=== PATIENT | male | born 1980 | race Caucasian/White ===

== ENCOUNTER → 2019-11-13 | Outpatient (CLI) | payer MEDICAID ==
[2019-11-13 17:46] LABS: HEMOGLOBIN 13.3 g/dl (13.5-17.5); MEAN CORPUSCULAR HEMOGLOBIN 30.4 pg (27.0-33.0); MEAN CORPUSCULAR HGB CONC 34.1 g/dl (32.0-36.5); PLATELET COUNT, AUTOMATED 227 10^3/uL (150-450); RED BLOOD COUNT 4.38 10^6/uL (4.30-6.10); WHITE BLOOD COUNT 5.1 10^3/uL (4.0-10.0)
[2019-11-13 18:10] LABS: ALBUMIN 3.9 GM/DL (3.2-5.2); ALT/SGPT 811 U/L (12-78); BILIRUBIN,TOTAL 1.1 MG/DL (0.2-1.0); BLOOD UREA NITROGEN 15 MG/DL (7-18); CALCIUM LEVEL 9.6 MG/DL (8.5-10.1); CARBON DIOXIDE LEVEL 31 MEQ/L (21-32); CHLORIDE LEVEL 103 MEQ/L (98-107); GLOMERULAR FILTRATION RATE > 60.0 (>60); GLUCOSE, FASTING 83 MG/DL (70-100); POTASSIUM SERUM 4.2 MEQ/L (3.5-5.1); SODIUM LEVEL 137 MEQ/L (136-145); TOTAL PROTEIN 8.1 GM/DL (6.4-8.2)
[2019-11-13 19:55] LABS: CHLAMYDIA DNA AMPLIFICATION NEGATIVE (NEGATIVE); GC DNA AMPLIFICATION NEGATIVE (NEGATIVE)
[2019-11-14 10:16] LABS: HEPATITIS B SURFACE ANTIGEN NEGATIVE (NEGATIVE)
[2019-11-14 10:37] LABS: HEPATITIS C VIRUS ABY INDEX 0.2 INDEX (<0.8); HIV 1&2 SCREEN CENTAUR NEGATIVE (NEGATIVE)
--- NOTE | 2019-12-18 14:59 | ECGEPIP ---
[facility] Test Date: 2019-11-13 Pat Name: MILI BECERRA Department: Room: - Gender: Male [employer]isting [employer] Operator: RICKEY : 1980 Requested By: Andrew Reese Order Number: [id number] Reading MD: Davin Nuno Measurements Intervals Starlight Rate: 63 P: 30 KS: 145 QRS: 9 QRSD: 112 T: 30 QT: 405 QTc: 415 Interpretive Statements SINUS RHYTHM WITH RSR IN V1/V2 MODERATE INTRAVENTRICULAR CONDUCTION DELAY NO PRIOR TRACING SEE SCANNED DOWNTIME REPORT
== END ==
LOC: M LAB 14:23
PROVIDERS: ATTEND Family Medicine
DX: F11.20 Opioid dependence, uncomplicated (principal)

== ENCOUNTER → 2020-09-30 | Outpatient (CLI) | payer OTHER | LOC: M RAD 16:41 | PROVIDERS: ATTEND Surgery | DX: L05.91 Pilonidal cyst without abscess (principal); M54.5 Low back pain ==

== ENCOUNTER → 2020-10-05 | Outpatient (CLI) | payer OTHER | LOC: M RAD 17:04 | PROVIDERS: ATTEND Pediatrics | DX: N20.0 Calculus of kidney (principal) ==

== ENCOUNTER → 2021-03-10 | Outpatient (CLI) | payer OTHER ==
--- NOTE | 2021-03-10 08:40 | REP ---
INDICATION: LBP, HX OF PENILE CYST COMPARISON: None. TECHNIQUE: Limited directed grayscale and color ultrasound examination using high-frequency transducer. FINDINGS: Directed ultrasound examination overlying the sacrum at the point of maximal tenderness/pain demonstrates no obvious underlying pathology by ultrasound examination. No fluid collection. No fistulous tract. No mass lesion. IMPRESSION: Unremarkable examination. <Electronically signed by Jason Masterson > 03/10/21 0821
== END ==
LOC: M RAD 07:22
PROVIDERS: ATTEND Pediatrics
DX: M54.50 Low back pain, unspecified (principal)

== ENCOUNTER 2021-05-19 17:05 | Emergency (ER) | payer OTHER ==
[~2021-05-19] VITALS: Ht 182.9 cm; Wt 79.0 kg
[2021-05-19] MEDS ORDERED: SUBL100I SC (17:12)
[2021-05-19] MEDS ORDERED: NS 1,000 ML IV ONE ×2 (17:15→19:10)
[2021-05-19] MEDS ORDERED: LORazepam 2 MG/ML VIAL IV STA (17:24)
[2021-05-19 17:47] LABS: BASO % 0.4 % (0.0-1.0); EOS % 0.1 % (0.0-3.0); HEMATOCRIT 38.9 % (42.0-52.0); HEMOGLOBIN 13.9 g/dl (13.5-17.5); LYMPH % 18.3 % (24.0-44.0); MEAN CORPUSCULAR HEMOGLOBIN 29.1 pg (27.0-33.0); MEAN CORPUSCULAR HGB CONC 35.7 g/dl (32.0-36.5); MEAN CORPUSCULAR VOLUME 81.4 fl (80.0-96.0); NEUTROPHILS # 7.3 10^3/uL (1.5-8.5); PLATELET COUNT, AUTOMATED 328 10^3/uL (150-450); RED BLOOD COUNT 4.78 10^6/uL (4.30-6.10)
[2021-05-19 18:18] LABS: ACETAMINOPHEN LEVEL < 2.0 UG/ML (10.0-30.0); ALBUMIN 4.5 GM/DL (3.2-5.2); ALT/SGPT 35 U/L (12-78); BILIRUBIN,DIRECT 0.6 MG/DL (0.0-0.2); BILIRUBIN,TOTAL 3.1 MG/DL (0.2-1.0); BLOOD UREA NITROGEN 26 MG/DL (7-18); CALCIUM LEVEL 9.8 MG/DL (8.5-10.1); CARBON DIOXIDE LEVEL 22 MEQ/L (21-32); CHLORIDE LEVEL 101 MEQ/L (98-107); CREATININE FOR GFR 0.93 MG/DL (0.70-1.30); ETHYL ALCOHOL (ETHANOL) < 0.003 % (0.000-0.010); GLOMERULAR FILTRATION RATE > 60.0 (>60); GLUCOSE, FASTING 71 MG/DL (70-100); POTASSIUM SERUM 3.8 MEQ/L (3.5-5.1); SALICYLATE LEVEL < 1.7 MG/DL (5.0-30.0); SODIUM LEVEL 135 MEQ/L (136-145); TOTAL PROTEIN 8.1 GM/DL (6.4-8.2)
[2021-05-19 18:32] LABS: MONO # 1.6 10^3/uL (0.0-0.8); MONO % 14.8 % (2.0-8.0)
[2021-05-19 21:30] VITALS: BP 139/80
[2021-05-19 21:31] LABS: AMPHETAMINES LEVEL URINE NEGATIVE (NEGATIVE); BARBITURATES URINE NEGATIVE (NEGATIVE); BENZODIAZEPINES URINE NEGATIVE (NEGATIVE); CANNABINOIDS URINE NEGATIVE (NEGATIVE); COCAINE METABOLITE URINE NEGATIVE (NEGATIVE); METHADONE URINE NEGATIVE (NEGATIVE); OPIATES URINE NEGATIVE (NEGATIVE); PHENCYCLIDINE URINE NEGATIVE (NEGATIVE)
== END 2021-05-19 22:40 | disposition left against medical advice (07) ==
LOC: M ED 17:05
DX: F19.10 Other psychoactive substance abuse, uncomplicated (principal); M62.82 Rhabdomyolysis; R94.31 Abnormal electrocardiogram [ECG] [EKG]; F11.10 Opioid abuse, uncomplicated; Z88.0 Allergy status to penicillin; Z88.6 Allergy status to analgesic agent; Z53.21 Procedure and treatment not carried out due to patient leaving prior to being seen by health care provider
CPT/HCPCS: 80048; 80076; 80143; 80307; 82077; 82550; 84443; 85025; 93005; 93041; 96361; 96374; 99285; J2060

== ENCOUNTER 2022-02-09 14:00 | Inpatient (IN) | payer OTHER ==
[~2022-02-09] VITALS: Ht 185.4 cm; Wt 85.0 kg
[~2022-02-09 14:00] MED LIST: SUBL100I SC
[2022-02-09] MEDS ORDERED: levETIRAcetam INJection 1,000 MG in D5W 100 ML IV ONE (14:10)
[2022-02-09] MEDS ORDERED: LORazepam 2 MG/ML VIAL IV STA (14:10)
[2022-02-09 14:38] LABS: ABG BASE EXCESS 0.6 (-2.0-2.0); ABG HCO3 25.2 MEQ/L (22.0-26.0); ABG O2 SATURATION 97.7 % (95.0-99.0); ABG PARTIAL PRESSURE CO2 40.4 mmHg (35.0-45.0); ABG PARTIAL PRESSURE O2 101.4 mmHg (75.0-100.0); ABG TOTAL CO2 26.4 MEQ/L (22.0-29.0); ABG pH (ARTERIAL) 7.413 UNITS (7.350-7.450)
[2022-02-09 15:03] LABS: BASO % 0.4 % (0.0-1.0); EOS # 0.1 10^3/uL (0.0-0.5); EOS % 1.4 % (0.0-3.0); HEMATOCRIT 40.4 % (42.0-52.0); HEMOGLOBIN 13.6 g/dl (13.5-17.5); LYMPH # 1.9 10^3/uL (1.5-5.0); LYMPH % 26.4 % (24.0-44.0); MEAN CORPUSCULAR HEMOGLOBIN 29.4 pg (27.0-33.0); MEAN CORPUSCULAR HGB CONC 33.7 g/dl (32.0-36.5); MEAN CORPUSCULAR VOLUME 87.4 fl (80.0-96.0); MONO # 0.7 10^3/uL (0.0-0.8); MONO % 9.4 % (2.0-8.0); NEUTROPHILS # 4.4 10^3/uL (1.5-8.5); PLATELET COUNT, AUTOMATED 405 10^3/uL (150-450); RED BLOOD COUNT 4.62 10^6/uL (4.30-6.10); WHITE BLOOD COUNT 7.1 10^3/uL (4.0-10.0)
[2022-02-09 15:58] LABS: ALBUMIN 3.9 G/DL (3.2-5.2); ALT/SGPT 43 U/L (7.0-40); BILIRUBIN,DIRECT 0.2 MG/DL (<0.4); BILIRUBIN,TOTAL 0.9 MG/DL (0.3-1.2); BLOOD UREA NITROGEN 15 MG/DL (9-23); CALCIUM LEVEL 9.2 MG/DL (8.5-10.1); CARBON DIOXIDE LEVEL 23 MMOL/L (20-31); CHLORIDE LEVEL 96 MMOL/L (98-107); CREATININE FOR GFR 0.56 MG/DL (0.70-1.30); ETHYL ALCOHOL (ETHANOL) 0.003 % (0.000-0.010); GLOMERULAR FILTRATION RATE > 60.0 (>60); GLUCOSE, FASTING 154 MG/DL (60-100); MAGNESIUM LEVEL 1.7 MG/DL (1.8-2.4); POTASSIUM SERUM 4.5 MMOL/L (3.5-5.1); SODIUM LEVEL 132 MMOL/L (136-145); TOTAL PROTEIN 7.1 G/DL (5.7-8.2)
[2022-02-09] MEDS ORDERED: METH10CO PO (17:14)
[2022-02-09] MEDS ORDERED: MELA3TAB30 PO (17:14)
[2022-02-09] MEDS ORDERED: HYDR50CA2 PO (17:14)
[2022-02-09] MEDS ORDERED: HOME MED LIST COMPLETE! XX SCH (17:15)
[2022-02-09 17:32] LABS: RSV AMPLIFICATION NEGATIVE (NEGATIVE)
[2022-02-09 17:56] LABS: APPEARANCE, URINE MANUAL CLEAR (CLEAR); COLOR, URINE MANUAL YELLOW (YELLOW)
[2022-02-09 17:58] LABS: BILIRUBIN, URINE MANUAL NEGATIVE (NEGATIVE); BLOOD URINE MANUAL NEGATIVE (NEGATIVE); GLUCOSE, URINE (UA) MANUAL NEGATIVE (NEGATIVE); KETONE, URINE MANUAL NEGATIVE (NEGATIVE); LEUKOCYTE ESTERASE, URINE MAN NEGATIVE (NEGATIVE); NITRITE, URINE MANUAL NEGATIVE (NEGATIVE); PROTEIN, URINE MANUAL NEGATIVE (NEGATIVE); UROBILINOGEN, URINE MANUAL NORMAL (NORMAL)
[2022-02-09] MEDS ORDERED: MAG SULF 1GM/100ML (MAG RUN) 1 GM in IV 1 EA IV SCH (18:00)
[2022-02-09 18:08] LABS: AMPHETAMINES LEVEL URINE POSITIVE (NEGATIVE); BARBITURATES URINE NEGATIVE (NEGATIVE); BENZODIAZEPINES URINE NEGATIVE (NEGATIVE); CANNABINOIDS URINE POSITIVE (NEGATIVE)
[2022-02-09 18:09] LABS: COCAINE METABOLITE URINE NEGATIVE (NEGATIVE); METHADONE URINE POSITIVE (NEGATIVE); OPIATES URINE NEGATIVE (NEGATIVE); PHENCYCLIDINE URINE NEGATIVE (NEGATIVE)
[2022-02-09 21:46] VITALS: BP 142/81
[2022-02-10] MEDS ORDERED: levETIRAcetam INJection 750 MG in D5W 100 ML IV SCH (03:00)
[2022-02-10] MEDS ORDERED: ENOXAPARIN 40MG/0.4ML SYRINGE (J1650 PER 10MG) SC SCH (09:00)
[2022-02-10] MEDS ORDERED: KEPP1TAB2 PO (09:23)
== END 2022-02-09 20:00 | disposition left against medical advice (07) | DRG 53 ==
LOC: M ED 14:00 → M ED INP 16:58
PROVIDERS: ADMIT Internal Medicine; ATTEND Internal Medicine
DX: R56.9 Unspecified convulsions (principal); G93.40 Encephalopathy, unspecified; E83.42 Hypomagnesemia; F14.20 Cocaine dependence, uncomplicated; Z88.6 Allergy status to analgesic agent; Z88.0 Allergy status to penicillin; Z88.8 Allergy status to other drugs, medicaments and biological substances; Z79.899 Other long term (current) drug therapy; F12.10 Cannabis abuse, uncomplicated

== ENCOUNTER 2022-04-20 06:16 | Inpatient (IN) | payer OTHER ==
[~2022-04-20] VITALS: Ht 182.9 cm; Wt 81.1 kg
[~2022-04-20 06:16] MED LIST changes: +HYDR50CA2 PO; +KEPP1TAB2 PO; +MELA3TAB30 PO; +METH10CO PO
[2022-04-20] MEDS ORDERED: CLON-412 PO (06:25)
[2022-04-20 07:09] LABS: VENOUS HCO3 23.4 MEQ/L (23.0-27.0); VENOUS O2 SATURATION 84.3 % (60.0-80.0); VENOUS PARTIAL PRESSURE CO2 38.2 mmHg (38.0-50.0); VENOUS PARTIAL PRESSURE O2 49.8 mmHg (30.0-50.0); VENOUS PH 7.405 UNITS (7.330-7.430); VENOUS STANDARD HCO3 23.3 MEQ/L; VENOUS TOTAL CO2 24.6 MEQ/L (24.0-28.0)
[2022-04-20 07:19] LABS: BASO % 0.4 % (0.0-1.0); EOS # 0.1 10^3/uL (0.0-0.5); EOS % 2.5 % (0.0-3.0); HEMATOCRIT 38.5 % (42.0-52.0); HEMOGLOBIN 13.3 g/dl (13.5-17.5); LYMPH # 1.5 10^3/uL (1.5-5.0); LYMPH % 29.2 % (24.0-44.0); MEAN CORPUSCULAR HEMOGLOBIN 29.5 pg (27.0-33.0); MEAN CORPUSCULAR HGB CONC 34.5 g/dl (32.0-36.5); MEAN CORPUSCULAR VOLUME 85.4 fl (80.0-96.0); MONO # 0.8 10^3/uL (0.0-0.8); MONO % 16.1 % (2.0-8.0); NEUTROPHILS # 2.6 10^3/uL (1.5-8.5); NEUTROPHILS % 51.6 % (36.0-66.0); PLATELET COUNT, AUTOMATED 377 10^3/uL (150-450); RED BLOOD COUNT 4.51 10^6/uL (4.30-6.10); WHITE BLOOD COUNT 5.1 10^3/uL (4.0-10.0)
[2022-04-20 07:38] LABS: ETHYL ALCOHOL (ETHANOL) 0.003 % (0.000-0.010)
[2022-04-20 07:39] LABS: BILIRUBIN,DIRECT 0.4 MG/DL (<0.4)
[2022-04-20 07:40] LABS: ACETAMINOPHEN LEVEL < 2.0 UG/ML (10.0-20.0); ALBUMIN 4.4 G/DL (3.2-5.2); ALKALINE PHOSPHATASE 85 U/L (46-116); ALT/SGPT 46 U/L (7.0-40); AST/SGOT 107 U/L (<34); BILIRUBIN,TOTAL 1.9 MG/DL (0.3-1.2); BLOOD UREA NITROGEN 21 MG/DL (9-23); CALCIUM LEVEL 9.4 MG/DL (8.5-10.1); CARBON DIOXIDE LEVEL 26 MMOL/L (20-31); CHLORIDE LEVEL 100 MMOL/L (98-107); CREATININE FOR GFR 0.67 MG/DL (0.70-1.30); GLOMERULAR FILTRATION RATE > 60.0 (>60); GLUCOSE, FASTING 85 MG/DL (60-100); POTASSIUM SERUM 4.4 MMOL/L (3.5-5.1); SALICYLATE LEVEL < 3.0 MG/DL (<30); SODIUM LEVEL 135 MMOL/L (136-145); TOTAL PROTEIN 7.6 G/DL (5.7-8.2)
[2022-04-20 07:47] LABS: RSV AMPLIFICATION NEGATIVE (NEGATIVE)
[2022-04-20 07:54] LABS: CPK CREATINE PHOSPHOKINASE 1503 U/L (46-171)
[2022-04-20] MEDS: NICOTINE 21MG/24HR 1 EA TRANSDERMAL TD SCH (09:00)
[2022-04-20] MEDS ORDERED: LORazepam 2 MG/ML VIAL IV STA ×3 (10:24→11:28)
[2022-04-20] MEDS ORDERED: NS 2,280 ML in IV 1 EA IV ONE (10:25)
[2022-04-20] MEDS ORDERED: OLANZapine ORAL DISINTEGRATING TAB 5MG PO ONE (11:55)
[2022-04-20] MEDS ORDERED: LORazepam 2 MG TAB PO ONE (13:55)
[2022-04-20] MEDS ORDERED: MOM 30ML SUSPENSION UDC PO PRN (16:20)
[2022-04-20] MEDS ORDERED: OLANZapine 5 MG TAB PO PRN (16:20)
[2022-04-20] MEDS ORDERED: OLAN1TAB20 PO (16:37)
[2022-04-20 18:04] LABS: BARBITURATES URINE NEGATIVE (NEGATIVE); BENZODIAZEPINES URINE NEGATIVE (NEGATIVE); COCAINE METABOLITE URINE NEGATIVE (NEGATIVE); OPIATES URINE NEGATIVE (NEGATIVE); PHENCYCLIDINE URINE NEGATIVE (NEGATIVE)
[2022-04-20 18:05] LABS: AMPHETAMINES LEVEL URINE POSITIVE (NEGATIVE); CANNABINOIDS URINE POSITIVE (NEGATIVE); METHADONE URINE POSITIVE (NEGATIVE)
[2022-04-21 06:38] VITALS: BP 133/72
[2022-04-21] MEDS: NICOTINE 21MG/24HR 1 EA TRANSDERMAL TD SCH (09:00)
[2022-04-21] MEDS ORDERED: HOME MED LIST COMPLETE! XX SCH (09:15)
[2022-04-21] MEDS: METHADONE 5MG TAB PO SCH (10:07)
[2022-04-21] MEDS: METHADONE 10MG TAB PO SCH (10:08)
[2022-04-21 17:19] VITALS: BP 145/78
[2022-04-21] MEDS: traZODone 25MG PER 1/2 TABLET PO PRN (20:49)
[2022-04-21] MEDS: OLANZapine 10 MG TAB PO SCH (20:49)
[2022-04-22 06:29] VITALS: BP 116/70
[2022-04-22] MEDS: NICOTINE 21MG/24HR 1 EA TRANSDERMAL TD SCH (08:36)
[2022-04-22] MEDS: METHADONE 5MG TAB PO SCH (08:36)
[2022-04-22] MEDS: METHADONE 10MG TAB PO SCH (08:36)
[2022-04-22] MEDS: ACETAMINOPHEN TAB 650MG DOSE (2X325MG) PO PRN (08:37)
[2022-04-22 17:10] VITALS: BP 136/86
[2022-04-22] MEDS: MAALOX 30 ML SUSP *UDC PO PRN (19:00)
[2022-04-22] MEDS: OLANZapine 10 MG TAB PO SCH (20:20)
[2022-04-22] MEDS: traZODone 25MG PER 1/2 TABLET PO PRN (20:20)
[2022-04-23 06:22] VITALS: BP 121/69
[2022-04-23] MEDS: NICOTINE 21MG/24HR 1 EA TRANSDERMAL TD SCH (09:12)
[2022-04-23] MEDS: METHADONE 5MG TAB PO SCH (09:13)
[2022-04-23] MEDS: METHADONE 10MG TAB PO SCH (09:13)
[2022-04-23] MEDS: PROPRANOLOL 10 MG TAB PO PRN (20:21)
[2022-04-23] MEDS: traZODone 25MG PER 1/2 TABLET PO PRN (20:21)
[2022-04-23] MEDS: OLANZapine 10 MG TAB PO SCH (20:21)
[2022-04-23 20:22] VITALS: BP 143/82
[2022-04-24 06:00] VITALS: BP 111/71
[2022-04-24] MEDS: NICOTINE 21MG/24HR 1 EA TRANSDERMAL TD SCH (07:56)
[2022-04-24] MEDS: METHADONE 5MG TAB PO SCH (07:56)
[2022-04-24] MEDS: METHADONE 10MG TAB PO SCH (07:56)
[2022-04-24] MEDS: ACETAMINOPHEN TAB 650MG DOSE (2X325MG) PO PRN ×2 (09:12→20:05)
[2022-04-24] MEDS: PROPRANOLOL 10 MG TAB PO PRN (15:01)
[2022-04-24 17:21] VITALS: BP 130/77
[2022-04-24] MEDS: OLANZapine 10 MG TAB PO SCH (20:05)
[2022-04-24] MEDS ORDERED: MIRTAZAPINE 7.5MG PER 1/2 TABLET PO SCH (21:00)
[2022-04-25 06:16] VITALS: BP 146/86
[2022-04-25] MEDS: NICOTINE 21MG/24HR 1 EA TRANSDERMAL TD SCH (08:53)
[2022-04-25] MEDS: METHADONE 5MG TAB PO SCH (08:54)
[2022-04-25] MEDS: METHADONE 10MG TAB PO SCH (08:54)
[2022-04-25] MEDS: ACETAMINOPHEN TAB 650MG DOSE (2X325MG) PO PRN (13:06)
[2022-04-25 13:07] VITALS: BP 138/96
[2022-04-25] MEDS: PROPRANOLOL 10 MG TAB PO PRN (13:07)
[2022-04-25 16:35] VITALS: BP 132/90
[2022-04-25] MEDS: MIRTAZAPINE 15 MG TAB PO SCH (20:19)
[2022-04-25] MEDS: traZODone 25MG PER 1/2 TABLET PO PRN (20:19)
[2022-04-25] MEDS: OLANZapine 10 MG TAB PO SCH (20:19)
[2022-04-26 06:20] VITALS: BP 117/70
[2022-04-26] MEDS: METHADONE 10MG TAB PO SCH (08:32)
[2022-04-26] MEDS: NICOTINE 21MG/24HR 1 EA TRANSDERMAL TD SCH (08:32)
[2022-04-26] MEDS: METHADONE 5MG TAB PO SCH (08:32)
[2022-04-26] MEDS: MAALOX 30 ML SUSP *UDC PO PRN (13:30)
[2022-04-26 16:08] VITALS: BP 136/78
[2022-04-26] MEDS: MIRTAZAPINE 15 MG TAB PO SCH (20:26)
[2022-04-26] MEDS: OLANZapine 10 MG TAB PO SCH (20:26)
[2022-04-26] MEDS: ACETAMINOPHEN TAB 650MG DOSE (2X325MG) PO PRN (20:27)
[2022-04-27 06:14] VITALS: BP 130/70
[2022-04-27] MEDS: NICOTINE 21MG/24HR 1 EA TRANSDERMAL TD SCH (08:01)
[2022-04-27] MEDS: METHADONE 10MG TAB PO SCH (08:01)
[2022-04-27] MEDS: METHADONE 5MG TAB PO SCH (08:01)
[2022-04-27] MEDS: MAALOX 30 ML SUSP *UDC PO PRN (11:59)
[2022-04-27 18:15] VITALS: BP 143/80
[2022-04-27] MEDS: traZODone 25MG PER 1/2 TABLET PO PRN (20:05)
[2022-04-27] MEDS: ACETAMINOPHEN TAB 650MG DOSE (2X325MG) PO PRN (20:06)
[2022-04-27] MEDS: MIRTAZAPINE 15 MG TAB PO SCH (20:06)
[2022-04-27] MEDS: OLANZapine 10 MG TAB PO SCH (20:06)
[2022-04-28 06:19] VITALS: BP 141/79
[2022-04-28] MEDS: NICOTINE 21MG/24HR 1 EA TRANSDERMAL TD SCH (07:52)
[2022-04-28] MEDS: METHADONE 5MG TAB PO SCH (07:54)
[2022-04-28] MEDS: METHADONE 10MG TAB PO SCH (07:55)
[2022-04-28 16:22] VITALS: BP 127/85
[2022-04-28] MEDS: diphenhydrAMINE 50MG CAP PO PRN (19:48)
[2022-04-28] MEDS: OLANZapine 10 MG TAB PO SCH (19:48)
[2022-04-28] MEDS: traZODone 50 MG TAB PO PRN (19:48)
[2022-04-28] MEDS: MIRTAZAPINE 15 MG TAB PO SCH (19:49)
[2022-04-28] MEDS: ACETAMINOPHEN TAB 650MG DOSE (2X325MG) PO PRN (19:49)
[2022-04-29 06:16] VITALS: BP 127/81
[2022-04-29] MEDS: METHADONE 10MG TAB PO SCH (08:05)
[2022-04-29] MEDS: METHADONE 5MG TAB PO SCH (08:05)
[2022-04-29] MEDS: NICOTINE 21MG/24HR 1 EA TRANSDERMAL TD SCH (08:06)
[2022-04-29] MEDS: diphenhydrAMINE 50MG CAP PO PRN (12:47)
[2022-04-29] MEDS ORDERED: predniSONE 20 MG TAB PO ONE (13:40)
[2022-04-29] MEDS: TRIAMCINOLONE ACET 0.1% OINTMENT 80GM TOP SCH ×2 (14:40→20:00)
[2022-04-29 16:34] VITALS: BP 136/90
[2022-04-29] MEDS: MAALOX 30 ML SUSP *UDC PO PRN (17:18)
[2022-04-29] MEDS: OLANZapine 10 MG TAB PO SCH (20:00)
[2022-04-29] MEDS: MIRTAZAPINE 15 MG TAB PO SCH (20:00)
[2022-04-29] MEDS: traZODone 50 MG TAB PO PRN (20:00)
[2022-04-30 06:48] VITALS: BP 118/63
[2022-04-30] MEDS: NICOTINE 21MG/24HR 1 EA TRANSDERMAL TD SCH (07:55)
[2022-04-30] MEDS: METHADONE 10MG TAB PO SCH (07:56)
[2022-04-30] MEDS: METHADONE 5MG TAB PO SCH (07:56)
[2022-04-30] MEDS: predniSONE 20 MG TAB PO SCH (07:57)
[2022-04-30] MEDS: TRIAMCINOLONE ACET 0.1% OINTMENT 80GM TOP SCH ×2 (07:59→20:01)
[2022-04-30 16:11] VITALS: BP 142/75
[2022-04-30] MEDS: OLANZapine 10 MG TAB PO SCH (20:01)
[2022-04-30] MEDS: traZODone 50 MG TAB PO PRN (20:01)
[2022-04-30] MEDS: MIRTAZAPINE 15 MG TAB PO SCH (20:01)
[2022-04-30] MEDS: ACETAMINOPHEN TAB 650MG DOSE (2X325MG) PO PRN (20:02)
[2022-05-01 06:06] VITALS: BP 115/76
[2022-05-01] MEDS: METHADONE 5MG TAB PO SCH (08:04)
[2022-05-01] MEDS: NICOTINE 21MG/24HR 1 EA TRANSDERMAL TD SCH (08:04)
[2022-05-01] MEDS: METHADONE 10MG TAB PO SCH (08:04)
[2022-05-01] MEDS: predniSONE 20 MG TAB PO SCH (08:05)
[2022-05-01] MEDS: TRIAMCINOLONE ACET 0.1% OINTMENT 80GM TOP SCH (08:05)
[2022-05-01] MEDS ORDERED: TRAZ-252 PO (11:57)
[2022-05-01] MEDS ORDERED: OLAN1TAB20 PO (11:57)
[2022-05-01] MEDS ORDERED: PRED20TA PO (11:57)
[2022-05-01] MEDS ORDERED: TRIA1OI80 TOP (11:57)
[2022-05-01] MEDS ORDERED: HYDR-3363 PO (11:57)
[2022-05-01] MEDS ORDERED: MIRT-10 PO (11:57)
[2022-05-02 13:08] LABS: ANTINUCLEAR ANTIBODIES DIRECT Negative (Negative)
== END 2022-05-01 14:03 | disposition home or self-care (01) | DRG 776 ==
LOC: M ED 06:16 → M ED INP 16:17 → M PSY 17:10
PROVIDERS: ADMIT Psychiatry & Neurology Psychiatry; ATTEND Psychiatry & Neurology Psychiatry
DX: F15.94 Other stimulant use, unspecified with stimulant-induced mood disorder (principal); F40.11 Social phobia, generalized; F41.0 Panic disorder [episodic paroxysmal anxiety]; R45.851 Suicidal ideations; R21 Rash and other nonspecific skin eruption; F17.210 Nicotine dependence, cigarettes, uncomplicated; R51.9 Headache, unspecified; Z56.0 Unemployment, unspecified; Z20.822 Contact with and (suspected) exposure to COVID-19; Z79.899 Other long term (current) drug therapy; Z88.0 Allergy status to penicillin; Z88.6 Allergy status to analgesic agent; Z88.8 Allergy status to other drugs, medicaments and biological substances

== ENCOUNTER → 2022-07-05 | Outpatient (REF) | payer OTHER ==
[~2022-07-05] MED LIST changes: +CLON-412 PO; +HYDR-3363 PO; +MIRT-10 PO; +OLAN1TAB20 PO; +PRED20TA PO; +TRAZ-252 PO; +TRIA1OI80 TOP
[2022-07-05 17:50] LABS: BASO % 0.8 % (0.0-1.0); EOS # 0.3 10^3/uL (0.0-0.5); EOS % 5.3 % (0.0-3.0); HEMATOCRIT 37.6 % (42.0-52.0); HEMOGLOBIN 12.7 g/dl (13.5-17.5); LYMPH # 2.6 10^3/uL (1.5-5.0); LYMPH % 48.4 % (24.0-44.0); MEAN CORPUSCULAR HGB CONC 33.8 g/dl (32.0-36.5); MEAN CORPUSCULAR VOLUME 88.9 fl (80.0-96.0); MONO # 0.5 10^3/uL (0.0-0.8); NEUTROPHILS # 1.9 10^3/uL (1.5-8.5); NEUTROPHILS % 36.3 % (36.0-66.0); PLATELET COUNT, AUTOMATED 271 10^3/uL (150-450); RED BLOOD COUNT 4.23 10^6/uL (4.30-6.10); WHITE BLOOD COUNT 5.3 10^3/uL (4.0-10.0)
[2022-07-05 18:17] LABS: ALKALINE PHOSPHATASE 60 U/L (46-116); ALT/SGPT 19 U/L (7.0-40); AST/SGOT 21 U/L (<34); BILIRUBIN,TOTAL 0.7 MG/DL (0.3-1.2); BLOOD UREA NITROGEN 9 MG/DL (9-23); CALCIUM LEVEL 8.9 MG/DL (8.5-10.1); CARBON DIOXIDE LEVEL 32 MMOL/L (20-31); CHLORIDE LEVEL 103 MMOL/L (98-107); CHOLESTEROL LEVEL 251 MG/DL (<200); CHOLESTEROL RISK RATIO 5.16 (<5); CREATININE FOR GFR 0.65 MG/DL (0.70-1.30); GLOMERULAR FILTRATION RATE > 60.0 (>60); GLUCOSE, FASTING 71 MG/DL (60-100); HDL CHOLESTEROL 48.6 MG/DL (>40); NON-HDL-C 202.4 MG/DL; POTASSIUM SERUM 4.4 MMOL/L (3.5-5.1); SODIUM LEVEL 139 MMOL/L (136-145); TOTAL PROTEIN 6.8 G/DL (5.7-8.2); TRIGLYCERIDES LEVEL 247 MG/DL (<150)
[2022-07-05 18:18] LABS: THYROID STIMULATING HORMONE 4.041 uIU/ML (0.55-4.78)
== END ==
LOC: M LAB REF 17:29
PROVIDERS: ATTEND Pediatrics
DX: R74.01 Elevation of levels of liver transaminase levels (principal); Z80.42 Family history of malignant neoplasm of prostate; E78.2 Mixed hyperlipidemia

== ENCOUNTER → 2022-08-18 | Outpatient (REF) | payer OTHER ==
[2022-08-18 17:33] LABS: BLOOD UREA NITROGEN 8 MG/DL (9-23); CALCIUM LEVEL 9.4 MG/DL (8.5-10.1); CARBON DIOXIDE LEVEL 29 MMOL/L (20-31); CHLORIDE LEVEL 104 MMOL/L (98-107); CPK CREATINE PHOSPHOKINASE 98 U/L (46-171); CREATININE FOR GFR 0.69 MG/DL (0.70-1.30); GLOMERULAR FILTRATION RATE > 60.0 (>60); GLUCOSE, FASTING 87 MG/DL (60-100); POTASSIUM SERUM 4.2 MMOL/L (3.5-5.1); SODIUM LEVEL 138 MMOL/L (136-145)
== END ==
LOC: M LAB REF 16:11
PROVIDERS: ATTEND Pediatrics
DX: M79.10 Myalgia, unspecified site (principal)

== ENCOUNTER → 2023-01-16 | Outpatient (REF) | payer OTHER ==
[~2023-01-16] MED LIST changes: +BUPR150T12 PO; +DOXY100T PO; +VENTAER INH
[2023-01-16 18:27] LABS: BLOOD UREA NITROGEN 16 MG/DL (9-23); CALCIUM LEVEL 9.7 MG/DL (8.5-10.1); CARBON DIOXIDE LEVEL 35 MMOL/L (20-31); CHLORIDE LEVEL 96 MMOL/L (98-107); CHOLESTEROL LEVEL 224 MG/DL (<200); CHOLESTEROL RISK RATIO 6.49 (<5); CREATININE FOR GFR 0.71 MG/DL (0.70-1.30); GLOMERULAR FILTRATION RATE > 60.0 (>60); GLUCOSE, FASTING 77 MG/DL (60-100); HDL CHOLESTEROL 34.5 MG/DL (>40); NON-HDL-C 189.5 MG/DL; POTASSIUM SERUM 4.9 MMOL/L (3.5-5.1); SODIUM LEVEL 138 MMOL/L (136-145); TRIGLYCERIDES LEVEL 408 MG/DL (<150)
== END ==
LOC: M LAB REF 16:44
PROVIDERS: ATTEND Family Medicine Addiction Medicine
DX: I50.9 Heart failure, unspecified (principal); E78.5 Hyperlipidemia, unspecified

== ENCOUNTER 2024-04-21 20:49 | Emergency (ER) | payer OTHER ==
[~2024-04-21] VITALS: Ht 185.4 cm; Wt 77.1 kg
[2024-04-21 20:53] VITALS: BP 129/96; TEMP 97.9; O2SAT 98
== END 2024-04-21 22:01 | disposition left against medical advice (07) ==
LOC: M ED 20:49
DX: Z53.21 Procedure and treatment not carried out due to patient leaving prior to being seen by health care provider (principal)

== ENCOUNTER 2024-04-24 07:49 | Inpatient (IN) | payer OTHER ==
[~2024-04-24] VITALS: Ht 185.4 cm; Wt 76.9 kg
[2024-04-24] MEDS ORDERED: ALBU8.5H INH (07:57)
[2024-04-24] MEDS ORDERED: AZIT-12 PO (07:57)
[2024-04-24 08:32] LABS: BASO % 0.3 % (0.0-1.0); EOS % 0.4 % (0.0-3.0); HEMATOCRIT 42.3 % (42.0-52.0); HEMOGLOBIN 14.3 g/dl (13.5-17.5); LYMPH # 1.6 10^3/uL (1.5-5.0); LYMPH % 17.1 % (24.0-44.0); MEAN CORPUSCULAR HGB CONC 33.8 g/dl (32.0-36.5); MEAN CORPUSCULAR VOLUME 91.6 fl (80.0-96.0); MONO # 0.7 10^3/uL (0.0-0.8); MONO % 7.8 % (2.0-8.0); NEUTROPHILS # 6.9 10^3/uL (1.5-8.5); PLATELET COUNT, AUTOMATED 434 10^3/uL (150-450); RED BLOOD COUNT 4.62 10^6/uL (4.30-6.10); WHITE BLOOD COUNT 9.4 10^3/uL (4.0-10.0)
[2024-04-24 08:48] LABS: LIPASE 29 U/L (12-53)
[2024-04-24 08:50] LABS: ALBUMIN 3.4 G/DL (3.2-5.2); ALKALINE PHOSPHATASE 122 U/L (40-129); ALT/SGPT 434 U/L (7.0-40); AST/SGOT 390 U/L (<34); BILIRUBIN,DIRECT 0.5 MG/DL (<0.4); BILIRUBIN,TOTAL 1.6 MG/DL (0.3-1.2); BLOOD UREA NITROGEN 18 MG/DL (9-23); CALCIUM LEVEL 8.9 MG/DL (8.5-10.1); CARBON DIOXIDE LEVEL 27 MMOL/L (20-31); CHLORIDE LEVEL 101 MMOL/L (98-107); CREATININE FOR GFR 0.81 MG/DL (0.70-1.30); GLOMERULAR FILTRATION RATE > 60.0 (>60); GLUCOSE, FASTING 134 MG/DL (60-100); POTASSIUM SERUM 4.4 MMOL/L (3.5-5.1); SODIUM LEVEL 137 MMOL/L (136-145); TOTAL PROTEIN 6.6 G/DL (5.7-8.2)
[2024-04-24] MEDS ORDERED: ISOVUE-370 76% 100ML VIAL As Ordered ONE (09:47)
[2024-04-24 10:08] LABS: HEPATITIS B SURFACE ANTIGEN NEGATIVE (NEGATIVE)
[2024-04-24] MEDS: MORPHINE 4 MG/ML 1ML VIAL IV ONE ×2 (10:17→17:25)
[2024-04-24] MEDS: ONDANSETRON 4MG 2ML VIAL IV ONE (10:17)
[2024-04-24] MEDS: NS (Normal Saline) 0.9% 1,000 ML IV ONE (10:17)
[2024-04-24 10:26] LABS: KETONE, URINE AUTO RFX NEGATIVE (NEGATIVE); LEUKOCYTE ESTERASE UR AUTO RFX NEGATIVE (NEGATIVE); MUCUS, URINE RFX SMALL (NEGATIVE); NITRITE, URINE AUTO RFX NEGATIVE (NEGATIVE); RBC, URINE AUTO RFX 1 /HPF (0-3); SQUAM EPITHELIAL CELL UR AURFX 0 /HPF (0-6); WBC, URINE AUTO RFX 3 /HPF (0-3)
[2024-04-24 10:29] LABS: HEPATITIS C VIRUS ABY INDEX < 0.02 INDEX (<0.8)
[2024-04-24 10:30] LABS: HEPATITIS B CORE ANTIBODY IGM NEGATIVE (NEGATIVE)
[2024-04-24] MEDS: PANTOPRAZOLE 40MG VIAL IV ONE (13:04)
[2024-04-24] MEDS: ACETAMINOPHEN *IV* 1,000 MG in IV 1 EA IV ONE (13:04)
[2024-04-24] MEDS ORDERED: PRED20TA PO (18:44)
[2024-04-24] MEDS ORDERED: HOME MED LIST COMPLETE! XX SCH (18:45)
[2024-04-24 19:28] LABS: ETHYL ALCOHOL (ETHANOL) 0.004 % (0.000-0.010)
[2024-04-24 20:13] LABS: BARBITURATES URINE NEGATIVE (NEGATIVE); BENZODIAZEPINES URINE NEGATIVE (NEGATIVE); COCAINE METABOLITE URINE NEGATIVE (NEGATIVE); METHADONE URINE NEGATIVE (NEGATIVE); OPIATES URINE NEGATIVE (NEGATIVE); PHENCYCLIDINE URINE NEGATIVE (NEGATIVE)
[2024-04-24 20:25] LABS: AMPHETAMINES LEVEL URINE POSITIVE (NEGATIVE); CANNABINOIDS URINE POSITIVE (NEGATIVE)
[2024-04-24] MEDS ORDERED: MOM 30ML SUSPENSION UDC PO PRN (20:25)
[2024-04-24 20:36] LABS: MAGNESIUM LEVEL 1.8 MG/DL (1.8-2.4)
[2024-04-24 20:38] LABS: C REACTIVE PROTEIN QUANTITATIV 2.39 MG/DL (<1.0); SALICYLATE LEVEL < 3.0 MG/DL (<30)
[2024-04-24 20:45] LABS: PROCALCITONIN 0.09 ng/ml
[2024-04-24] MEDS: MAALOX 30 ML SUSP *UDC PO PRN (22:28)
[2024-04-24] MEDS: DOCUSATE SODIUM 100MG CAPSULE PO SCH (22:28)
[2024-04-24] MEDS: FUROSEMIDE 20MG/2ML VIAL IV ONE (22:29)
[2024-04-24 22:32] LABS: INR 1.14; PARTIAL THROMBOPLASTIN TIME 26.7 SECONDS (24.8-34.2); PROTHROMBIN TIME 14.9 SECONDS (12.5-14.5)
[2024-04-25] MEDS: ONDANSETRON 4MG 2ML VIAL IV PRN (04:51)
[2024-04-25] MEDS: ACETAMINOPHEN 325 MG TAB PO PRN (04:52)
[2024-04-25 07:08] LABS: HEMATOCRIT 40.6 % (42.0-52.0); HEMOGLOBIN 13.9 g/dl (13.5-17.5); MEAN CORPUSCULAR HEMOGLOBIN 31.2 pg (27.0-33.0); MEAN CORPUSCULAR HGB CONC 34.2 g/dl (32.0-36.5); MEAN CORPUSCULAR VOLUME 91.2 fl (80.0-96.0); RED BLOOD COUNT 4.45 10^6/uL (4.30-6.10)
[2024-04-25 07:30] LABS: ALBUMIN 2.9 G/DL (3.2-5.2); ALKALINE PHOSPHATASE 101 U/L (40-129); ALT/SGPT 447 U/L (7.0-40); AST/SGOT 378 U/L (<34); BILIRUBIN,TOTAL 1.8 MG/DL (0.3-1.2); BLOOD UREA NITROGEN 18 MG/DL (9-23); CALCIUM LEVEL 7.9 MG/DL (8.5-10.1); CARBON DIOXIDE LEVEL 25 MMOL/L (20-31); CHLORIDE LEVEL 99 MMOL/L (98-107); CHOLESTEROL LEVEL 116 MG/DL (<200); CHOLESTEROL RISK RATIO 4.14 (<5); CREATININE FOR GFR 0.75 MG/DL (0.70-1.30); GLOMERULAR FILTRATION RATE > 60.0 (>60); GLUCOSE, FASTING 101 MG/DL (60-100); MAGNESIUM LEVEL 1.7 MG/DL (1.8-2.4); PLATELET COUNT, AUTOMATED 207 10^3/uL (150-450); POTASSIUM SERUM 4.4 MMOL/L (3.5-5.1); SODIUM LEVEL 137 MMOL/L (136-145); TOTAL PROTEIN 5.7 G/DL (5.7-8.2); TRIGLYCERIDES LEVEL 100 MG/DL (<150)
[2024-04-25] MEDS ORDERED: FUROSEMIDE 40 MG TAB PO SCH (09:00)
[2024-04-25] MEDS ORDERED: FUROSEMIDE 40MG/4ML VIAL IV SCH (09:00)
[2024-04-25] MEDS: PANTOPRAZOLE 40MG VIAL IV SCH (09:03)
[2024-04-25] MEDS: MORPHINE 4 MG/ML 1ML VIAL IV PRN (09:04)
[2024-04-25] MEDS: MAG SULF 1GM/100ML (MAG RUN) 1 GM in IV 1 EA IV ONE (09:08)
[2024-04-25] MEDS: FUROSEMIDE 40MG/4ML VIAL IV SCH (09:08)
[2024-04-25 15:30] VITALS: BP 128/86; TEMP 98.1; O2SAT 95
[2024-04-25 20:10] VITALS: O2SAT 95
[2024-04-25 20:41] VITALS: BP 134/99; TEMP 97.5; O2SAT 99
[2024-04-25] MEDS: METOPROLOL TART 12.5 MG PER 1/2 TAB PO SCH (21:57)
[2024-04-25] MEDS: MAGNESIUM OXIDE 400MG TAB (MAG-OX) PO SCH (21:57)
[2024-04-25 22:42] VITALS: BP 132/102
[2024-04-25] MEDS: THIAMINE 100 MG TAB PO SCH (22:50)
[2024-04-25] MEDS: LORazepam 2 MG TAB PO PRN (22:51)
[2024-04-26] VITALS (7 sets, daily range): BP systolic 105–128; BP diastolic 54–92; TEMP 97.3–97.9; O2SAT 94–99
[2024-04-26] MEDS: MAG SULF 1GM/100ML (MAG RUN) 1 GM in IV 1 EA IV ONE (00:25)
[2024-04-26 06:41] LABS: BASO % 0.4 % (0.0-1.0); EOS # 0.1 10^3/uL (0.0-0.5); EOS % 1.3 % (0.0-3.0); HEMATOCRIT 46.7 % (42.0-52.0); HEMOGLOBIN 15.8 g/dl (13.5-17.5); LYMPH # 1.6 10^3/uL (1.5-5.0); MEAN CORPUSCULAR HEMOGLOBIN 31.3 pg (27.0-33.0); MEAN CORPUSCULAR HGB CONC 33.8 g/dl (32.0-36.5); MEAN CORPUSCULAR VOLUME 92.5 fl (80.0-96.0); MONO # 0.7 10^3/uL (0.0-0.8); MONO % 10.6 % (2.0-8.0); NEUTROPHILS # 4.3 10^3/uL (1.5-8.5); NEUTROPHILS % 63.4 % (36.0-66.0); PLATELET COUNT, AUTOMATED 393 10^3/uL (150-450); RED BLOOD COUNT 5.05 10^6/uL (4.30-6.10); WHITE BLOOD COUNT 6.8 10^3/uL (4.0-10.0)
[2024-04-26 07:00] LABS: ALBUMIN 2.9 G/DL (3.2-5.2); ALKALINE PHOSPHATASE 110 U/L (40-129); ALT/SGPT 453 U/L (7.0-40); AST/SGOT 291 U/L (<34); BILIRUBIN,TOTAL 1.7 MG/DL (0.3-1.2); BLOOD UREA NITROGEN 15 MG/DL (9-23); CALCIUM LEVEL 8.7 MG/DL (8.5-10.1); CARBON DIOXIDE LEVEL 29 MMOL/L (20-31); CHLORIDE LEVEL 100 MMOL/L (98-107); CREATININE FOR GFR 0.81 MG/DL (0.70-1.30); GLOMERULAR FILTRATION RATE > 60.0 (>60); GLUCOSE, FASTING 105 MG/DL (60-100); MAGNESIUM LEVEL 2.1 MG/DL (1.8-2.4); POTASSIUM SERUM 4.6 MMOL/L (3.5-5.1); SODIUM LEVEL 138 MMOL/L (136-145); TOTAL PROTEIN 5.8 G/DL (5.7-8.2)
[2024-04-26] MEDS: FUROSEMIDE 40MG/4ML VIAL IV SCH (08:19)
[2024-04-26] MEDS: ENOXAPARIN 40MG/0.4ML SYRINGE (J1650 PER 10MG) SC SCH (08:19)
[2024-04-26] MEDS: FOLIC ACID 1MG TAB PO SCH (08:20)
[2024-04-26] MEDS: MULTIVITAMINS/MINERALS THERAP 1 TAB PO SCH (08:20)
[2024-04-26] MEDS: METOPROLOL TART 12.5 MG PER 1/2 TAB PO ONE (13:09)
[2024-04-26] MEDS: METOPROLOL TART 25 MG TABLET PO SCH (20:32)
[2024-04-27 03:22] VITALS: BP 105/59; TEMP 97.2; O2SAT 90
[2024-04-27] MEDS ORDERED: QUEtiapine FUMARATE 25 MG TAB PO PRN (04:00)
[2024-04-27 05:23] VITALS: TEMP 97.5; O2SAT 99
[2024-04-27 05:50] VITALS: BP 128/91; TEMP 97.5; O2SAT 99
[2024-04-27] MEDS ORDERED: METO1TAB32 PO (18:16)
[2024-04-27] MEDS ORDERED: LASI40TA9 PO (18:16)
== END 2024-04-27 07:16 | disposition left against medical advice (07) | DRG 194 ==
LOC: M ED 07:49 → M ED INP 08:50 → OBSVTOIN 04-25 08:42 → M MSPAV 04-25 15:22
PROVIDERS: ADMIT Family Medicine; ATTEND Internal Medicine Nephrology
DX: I50.23 Acute on chronic systolic (congestive) heart failure (principal); I47.20 Ventricular tachycardia, unspecified; R56.9 Unspecified convulsions; E83.42 Hypomagnesemia; I08.3 Combined rheumatic disorders of mitral, aortic and tricuspid valves; F15.90 Other stimulant use, unspecified, uncomplicated; F41.9 Anxiety disorder, unspecified; F32.A Depression, unspecified; F12.90 Cannabis use, unspecified, uncomplicated; Z88.6 Allergy status to analgesic agent; Z88.0 Allergy status to penicillin; Z88.8 Allergy status to other drugs, medicaments and biological substances; K82.8 Other specified diseases of gallbladder

== ENCOUNTER 2024-05-01 12:19 | Inpatient (IN) | payer OTHER ==
[~2024-05-01] VITALS: Ht 185.4 cm; Wt 78.7 kg
[~2024-05-01 12:19] MED LIST changes: +ALBU8.5H INH; +AZIT-12 PO; +LASI40TA9 PO; +METO1TAB32 PO
[2024-05-01 14:34] LABS: BASO % 0.3 % (0.0-1.0); EOS % 0.3 % (0.0-3.0); HEMATOCRIT 41.8 % (42.0-52.0); HEMOGLOBIN 13.9 g/dl (13.5-17.5); LYMPH # 1.1 10^3/uL (1.5-5.0); LYMPH % 11.5 % (24.0-44.0); MEAN CORPUSCULAR HEMOGLOBIN 31.2 pg (27.0-33.0); MEAN CORPUSCULAR HGB CONC 33.3 g/dl (32.0-36.5); MEAN CORPUSCULAR VOLUME 93.7 fl (80.0-96.0); MONO # 0.4 10^3/uL (0.0-0.8); MONO % 3.9 % (2.0-8.0); NEUTROPHILS # 8.1 10^3/uL (1.5-8.5); NEUTROPHILS % 83.2 % (36.0-66.0); RED BLOOD COUNT 4.46 10^6/uL (4.30-6.10); WHITE BLOOD COUNT 9.7 10^3/uL (4.0-10.0)
[2024-05-01 14:49] LABS: PARTIAL THROMBOPLASTIN TIME 44.2 SECONDS (24.8-34.2); PROTHROMBIN TIME 46.9 SECONDS (12.5-14.5)
[2024-05-01 14:51] LABS: INR 5.18
[2024-05-01 14:55] LABS: PLATELET COUNT, AUTOMATED 83 10^3/uL (150-450)
[2024-05-01 14:57] LABS: CK-MB VALUE MASS 19.8 NG/ML (<3.6)
[2024-05-01 14:58] LABS: LIPASE 60 U/L (12-53)
[2024-05-01 15:01] LABS: THYROID STIMULATING HORMONE 3.397 uIU/ML (0.55-4.78)
[2024-05-01 15:02] LABS: FREE T4 1.27 NG/DL (0.89-1.76)
[2024-05-01 15:21] LABS: ALBUMIN 3.2 G/DL (3.2-5.2); ALKALINE PHOSPHATASE 230 U/L (40-129); BILIRUBIN,TOTAL 4.5 MG/DL (0.3-1.2); BLOOD UREA NITROGEN 62 MG/DL (9-23); CALCIUM LEVEL 8.2 MG/DL (8.5-10.1); CARBON DIOXIDE LEVEL 25 MMOL/L (20-31); CHLORIDE LEVEL 90 MMOL/L (98-107); CPK CREATINE PHOSPHOKINASE 1424 U/L (46-171); CREATININE FOR GFR 1.86 MG/DL (0.70-1.30); GLOMERULAR FILTRATION RATE 42.4 (>60); GLUCOSE, FASTING 86 MG/DL (60-100); MB/CK RELATIVE INDEX 1.39 (< OR =4); POTASSIUM SERUM 4.8 MMOL/L (3.5-5.1); SODIUM LEVEL 126 MMOL/L (136-145)
[2024-05-01 15:36] LABS: ALT/SGPT > 6000 U/L (7.0-40); AST/SGOT > 6000 U/L (<34)
[2024-05-01 16:02] LABS: ETHYL ALCOHOL (ETHANOL) < 0.003 % (0.000-0.010)
[2024-05-01 16:03] LABS: SALICYLATE LEVEL 3.3 MG/DL (<30)
[2024-05-01 16:13] LABS: CK-MB VALUE MASS 18.1 NG/ML (<3.6)
[2024-05-01] MEDS ORDERED: MEROPENEM INJ 2 GM in NS 100 ML IV ONE (16:25)
[2024-05-01 16:28] LABS: MB/CK RELATIVE INDEX 1.37 (< OR =4)
[2024-05-01] MEDS: MEROPENEM INJ 1 GM in IV 1 EA IV SCH (16:36)
[2024-05-01] MEDS ORDERED: DEXTROSE 50% 50ML SYRINGE IV PRN (18:30)
[2024-05-01] MEDS ORDERED: GLUCOSE 4 GM CHEW PO PRN (18:30)
[2024-05-01] MEDS ORDERED: GLUCAGON INJ 1MG VIAL SC PRN (18:30)
[2024-05-01] MEDS ORDERED: FURO40TA2 PO (18:37)
[2024-05-01] MEDS ORDERED: METO1TAB32 PO (18:37)
[2024-05-01] MEDS ORDERED: HOME MED LIST COMPLETE! XX SCH (18:40)
[2024-05-01] MEDS: FUROSEMIDE 40MG/4ML VIAL IV ONE ×2 (18:50→22:00)
[2024-05-01] MEDS: D5W IV ONE ×2 (19:44→21:00)
[2024-05-01] MEDS: ACETYLCYSTEINE IV ONE ×2 (19:44→21:00)
[2024-05-02 00:15] VITALS: BP 105/65; TEMP 97; O2SAT 98
[2024-05-02] MEDS: PERCOCET 5MG/325MG TAB PO ONE (01:26)
[2024-05-02] MEDS: ACETYLCYSTEINE 7,900 MG in D5W 1,000 ML IV ONE (02:09)
[2024-05-02] MEDS: MORPHINE 2 MG/ML 1ML VIAL IV ONE (03:29)
[2024-05-02 04:24] VITALS: BP 100/73; TEMP 97.3; O2SAT 100
[2024-05-02 07:49] VITALS: BP 103/73; TEMP 97.6; O2SAT 97
[2024-05-02 07:56] LABS: HEMATOCRIT 40.6 % (42.0-52.0); MEAN CORPUSCULAR HGB CONC 34.5 g/dl (32.0-36.5); RED BLOOD COUNT 4.51 10^6/uL (4.30-6.10); WHITE BLOOD COUNT 6.8 10^3/uL (4.0-10.0)
[2024-05-02 07:59] LABS: PLATELET COUNT, AUTOMATED 93 10^3/uL (150-450)
[2024-05-02 09:13] LABS: ALBUMIN 2.2 G/DL (3.2-5.2); ALKALINE PHOSPHATASE 195 U/L (40-129); ALT/SGPT 4715 U/L (7.0-40); AST/SGOT > 6000 U/L (<34); BILIRUBIN,TOTAL 3.2 MG/DL (0.3-1.2); BLOOD UREA NITROGEN 51 MG/DL (9-23); CALCIUM LEVEL 7.1 MG/DL (8.5-10.1); CARBON DIOXIDE LEVEL 28 MMOL/L (20-31); CHLORIDE LEVEL 91 MMOL/L (98-107); CREATININE FOR GFR 1.23 MG/DL (0.70-1.30); GLOMERULAR FILTRATION RATE > 60.0 (>60); GLUCOSE, FASTING 104 MG/DL (60-100); SODIUM LEVEL 129 MMOL/L (136-145); TOTAL PROTEIN 4.5 G/DL (5.7-8.2)
[2024-05-02] MEDS: MEROPENEM INJ 1 GM in IV 1 EA IV SCH (10:04)
[2024-05-02] MEDS: VANCOMYCIN HCL 1,500 MG, VIAL MATE ADAPTER 1 EACH in NS 500 ML IV ONE (10:52)
[2024-05-02 11:15] LABS: KETONE, URINE AUTO RFX NEGATIVE (NEGATIVE); LEUKOCYTE ESTERASE UR AUTO RFX NEGATIVE (NEGATIVE); NITRITE, URINE AUTO RFX NEGATIVE (NEGATIVE); RBC, URINE AUTO RFX 0 /HPF (0-3); SQUAM EPITHELIAL CELL UR AURFX 0 /HPF (0-6); WBC, URINE AUTO RFX 0 /HPF (0-3)
[2024-05-02] MEDS ORDERED: ONDANSETRON 4MG 2ML VIAL IV PRN (12:05)
[2024-05-02] MEDS ORDERED: HYOSCYAMINE SULFATE 0.125 MG SUBL TABLET PO PRN (12:05)
[2024-05-02] MEDS ORDERED: ACETAMINOPHEN 650MG SUPP PR PRN (12:05)
[2024-05-02] MEDS ORDERED: FLEET ENEMA PR PRN (12:05)
[2024-05-02] MEDS ORDERED: BISACODYL 10MG SUPP PR PRN (12:05)
[2024-05-02] MEDS ORDERED: ONDANSETRON 4MG ORAL DISINTEGRATING TAB PO PRN (12:05)
[2024-05-02] MEDS ORDERED: ACETAMINOPHEN 325 MG TAB PO PRN (12:05)
[2024-05-02] MEDS ORDERED: LORazepam 2 MG/ML 1ML VIAL IV PRN (12:05)
[2024-05-02] MEDS ORDERED: ATROPINE SULFATE 1% OPHTH SOLN 2ML BTL SL PRN (12:05)
[2024-05-02] MEDS ORDERED: LORazepam 1 MG TAB PO PRN (12:05)
[2024-05-02] MEDS: MORPHINE 10MG/0.5ML ORAL CONCENTRATE SOLUTION U/D SL PRN (12:25)
[2024-05-02] MEDS: MORPHINE 2 MG/ML 1ML VIAL IV PRN (14:23)
[2024-05-02] MEDS ORDERED: VANCOMYCIN HCL 1,000 MG, VIAL MATE ADAPTER 1 EACH in NS 250 ML IV SCH (20:00)
[2024-05-03] MEDS: MORPHINE SULFATE INJ 100 MG in NS 90 ML IV SCH (10:10)
[2024-05-03] MEDS: rOPINIRole 2MG TAB PO SCH (17:41)
[2024-05-04] MEDS: diazePAM 10MG/2ML SYRINGE IV PRN (10:51)
[2024-05-05] MEDS: SCOPOLAMINE 1MG TRANSDERMAL PATCH TOP PRN (12:46)
[2024-05-08] MEDS: diazePAM 10MG/2ML SYRINGE IV SCH (11:35)
== END 2024-05-08 15:00 | disposition expired | DRG 279 ==
LOC: M ED 12:19 → M ED INP 18:26 → M PCU 05-02 00:05 → M MSPAV 05-02 15:08
PROVIDERS: ADMIT Internal Medicine; ATTEND Student in an Organized Health Care Education/Training Program
DX: K72.00 Acute and subacute hepatic failure without coma (principal); I21.A1 Myocardial infarction type 2; G93.6 Cerebral edema; K76.7 Hepatorenal syndrome; G93.41 Metabolic encephalopathy; D68.9 Coagulation defect, unspecified; E87.1 Hypo-osmolality and hyponatremia; I50.23 Acute on chronic systolic (congestive) heart failure; N17.9 Acute kidney failure, unspecified; D69.59 Other secondary thrombocytopenia; I13.0 Hypertensive heart and chronic kidney disease with heart failure and stage 1 through stage 4 chronic kidney disease, or unspecified chronic kidney disease; F19.10 Other psychoactive substance abuse, uncomplicated; F39 Unspecified mood [affective] disorder; Z51.5 Encounter for palliative care; Z88.0 Allergy status to penicillin; Z88.8 Allergy status to other drugs, medicaments and biological substances; Z79.899 Other long term (current) drug therapy